=== PATIENT | female | born 1945 | race Asian ===

== ENCOUNTER 2025-02-24 16:31 | Emergency (ER) | payer MEDICARE, OTHER, SELFPAY ==
[2025-02-24 17:02] LABS: Hematocrit 32.0 % (37.0-47.0); Hemoglobin 10.5 g/dL (12.0-16.0); Mean Corp Hgb Conc. 32.8 g/dL (33.0-37.0); Mean Corpuscular Volume 88.4 fL (81.0-99.0); Nucleated Red Blood Cells % 0 %; Platelet Count 169 10^3/uL (130-400); Red Cell Dist. Width 12.8 % (11.5-14.5)
[2025-02-24 17:10] LABS: INR 0.93; PT 12.8 Sec (11.4-14.6)
[2025-02-24 17:22] LABS: ALT (SGPT) 20 U/L (0-35); AST (SGOT) 26 U/L (14-36); Albumin 4.0 g/dl (3.5-5.0); Alkaline Phosphatase 60 U/L (38-126); Blood Urea Nitrogen 14 mg/dl (7-17); Calcium 9.6 mg/dl (8.4-10.2); Carbon Dioxide 26 mmol/L (22-30); Chloride 107 mmol/L (98-107); Glucose 135 mg/dl (70-99); Potassium 4.4 mmol/L (3.5-5.1); Sodium 138 mmol/L (135-145); Total Protein 6.6 g/dl (6.3-8.2); eGFR > 60.00
[2025-02-24 17:25] LABS: Troponin I < 0.012 ng/ml
[2025-02-24 19:53] VITALS: BMI 22.6
[2025-02-24 20:00] VITALS: BP 157/68
--- NOTE | 2025-02-24 20:48 | ED.GENMED ---
History of Present Illness
General
Chief Complaint: Heart Rate Problem
Source: patient
Exam Limitations: none
Time Seen by Provider: 02/24/25 20:35
Nursing documentation reviewed up to this point in time: agreed with
History of Present Illness
History of Present Illness:
Patient states she had a sudden onset of palpatations last PM. Symptoms lasted approx 10 minutes and then resolved. Earlier today she noted anterior chest pain that radiated to her back. Symptoms lasted most of the day but she reports pain has
resolved. She also noted dizziness for approx 20 minutes this afternoon. No prior history of these symptoms. Brought to ED by family for eval.
Past History
Past History
ED Past Medical History: HTN, Hypercholesterolemia and Hypothyroidism
ED Past Surgical History: Cardiac (stent x1)
Review of Systems
Review of Systems
Allergies reviewed?: Yes
All Other Systems: ROS reviewed and negative except as documented in HPI and ROS
Constitutional: Reports no symptoms
EENT: Reports no symptoms
Respiratory: Reports no symptoms
Cardiac: Reports chest pain and palpitations
ABD/GI: Reports no symptoms
: Reports no symptoms
Musculoskeletal: Reports no symptoms
Skin: Reports no symptoms
Neurological: Reports dizzy (x 20 minutes earlier today)
Psychiatric: Reports no symptoms
Phy Exam
General Physical Exam
General Presentation: well appearing and no apparent distress
General age: appears stated age
General Skin: warm and dry
General Mental: alert
Cardiovascular Exam
Cardiovascular Exam: regular rate/rhythm and no edema
Pulmonary Exam
Pulmonary Exam: no respiratory distress and chest non tender
Breath Sounds: Crackles: left lower and right lower
Musculoskeletal Exam
Musculoskeletal Exam: full ROM and neuro vasc intact
Skin Exam
Skin Exam: normal color, warm/dry and no rash
Psychiatric Exam
Psychiatric Exam: normal mood/affect
Course
Orders/Labs/Results
Orders:
Orders
02/24/25 16:52
EKG [Electrocardiogram (*1)] Urgent
Reason for Study: Chest Pain
02/24/25 16:53
EKG- Treatment ONCE
02/24/25 16:55
Complete Blood Count/With Diff Urgent
Comprehensive Metabolic Panel Urgent
PT/INR [Prothrombin Time] Urgent
TSH Reflex To Free T4 Urgent
Comment: ADD ON
Troponin I Urgent
02/24/25 20:39
CR Chest - 2 Views Urgent
Comment:
Reason For Exam: pain
02/24/25 20:48
Add On- LAB Urgent
Tests Added?: TSH reflex free T4
Abnormal Lab Results
02/24/25
16:55
RBC 3.62 L 10^6/uL
(4.20-5.40)
Hgb 10.5 L g/dL
(12.0-16.0)
Hct 32.0 L %
(37.0-47.0)
MCHC 32.8 L g/dL
(33.0-37.0)
Glucose 135 H mg/dl
(70-99)
02/24/25 16:55
02/24/25 16:55
Vital Signs
Initial and Last Documented VS:
Initial Vital Signs
Pulse Resp Pulse Ox
66 18 100
02/24/25 16:51 02/24/25 16:51 02/24/25 16:51
Last Documented Vital Signs
Pulse Resp BP Pulse Ox
56 19 142/71 97
02/24/25 21:58 02/24/25 21:58 02/24/25 21:58 02/24/25 21:45
*Radiology
Radiology exam reviewed: radiology read reviewed
*Pulse Oximetry
SaO2: 100
Oxygen Mode of Delivery: Room air
Patient hypoxic: no
ED Attending Note
-
Portions of this chart may have been created with voice recognition software.� Occasional wrong word or��sound alike� substitutions may have occurred due to the inherent limitations of voice recognition software.
Discharge Plan
Departure
Patient Disposition: Home (Routine Discharge)
Date of Disposition: 02/24/25
Time of Disposition: 21:57
Patient with high blood pressure during this ER visit?: No
Condition: Good
Covid-19: Not Applicable
Discharge Problem:
Chest pain
Instructions: Chest Pain NON-[facility] [employer] Follow Up
Referrals:
Shi Shearer MD [Family Provider, Internal Medicine]
Activity Restrictions/Additional Instructions:
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 Return to the emergency department immediately for any changes in/worsening of your symptoms.
Interventions
Interventions:
*Risk Screen - Suicide Last Done: 02/24/25 16:51
*General Assessment Last Done: 02/24/25 16:51
*Neglect/Abuse Screening Last Done: 02/24/25 16:51
*ED- Fall Risk Assessment Last Done: 02/24/25 19:53
*ED COVID-19 Vaccine History Last Done: 02/24/25 16:51
*ED Influenza Vaccine History Last Done: 02/24/25 16:51
*Nursing Disposition Last Done: 02/24/25 22:03
ED- Cardiac Assessment Last Done: 02/24/25 19:53
ED- Pulmonary Assessment Last Done: 02/24/25 19:53
Discharge Date and Time
Discharge Date/Time: 02/24/25 22:13
Print Language: HUNGARIAN
[2025-02-24 21:00] VITALS: BP 122/74
[2025-02-24 21:27] VITALS: BP 132/71
[2025-02-24 21:58] VITALS: BP 142/71
== END 2025-02-24 22:13 | disposition home or self-care (01) ==
LOC: EMR 16:31
PROVIDERS: Emergency Medicine; EMERGENCY PHYSICIAN Emergency Medicine; FAMILY PHYSICIAN Internal Medicine
DX: R07.89 Other chest pain (principal); I10 Essential (primary) hypertension; E78.00 Pure hypercholesterolemia, unspecified; E03.9 Hypothyroidism, unspecified; Z95.5 Presence of coronary angioplasty implant and graft
CPT/HCPCS: 99285; 71046; 80053; 84443; 84484; 85025; 85610; 93005